=== PATIENT | female | born 1995 | race Caucasian/White ===

== ENCOUNTER 2021-04-27 15:27 | Emergency (ER) | payer MEDICAID ==
[~2021-04-27] VITALS: Ht 162.6 cm; Wt 79.5 kg
[2021-04-27 15:49] VITALS: BP 110/76
[2021-04-27] MEDS ORDERED: PENI500T2 PO (15:54)
[2021-04-27] MEDS ORDERED: IBUP-1986 PO (15:54)
[2021-04-27] MEDS ORDERED: penicillin V potassium 500mg tablet PO ONE (15:55)
[2021-04-27] MEDS ORDERED: ibuprofen tablet 400 MG TABLET PO ONE (15:55)
== END 2021-04-27 17:10 | disposition home or self-care (01) ==
LOC: ER 15:29
DX: K08.89 Other specified disorders of teeth and supporting structures (principal); F17.200 Nicotine dependence, unspecified, uncomplicated; F15.90 Other stimulant use, unspecified, uncomplicated; Z79.2 Long term (current) use of antibiotics; Z79.899 Other long term (current) drug therapy
CPT/HCPCS: 99283

== ENCOUNTER 2021-05-08 05:18 | Emergency (ER) | payer MEDICAID ==
[~2021-05-08] VITALS: Ht 162.6 cm; Wt 72.7 kg
[~2021-05-08 05:18] MED LIST: IBUP-1986 PO; PENI500T2 PO
[2021-05-08 05:35] VITALS: BP 112/89
== END 2021-05-08 07:15 | disposition home or self-care (01) ==
LOC: ER 05:19
DX: J39.2 Other diseases of pharynx (principal); Z20.822 Contact with and (suspected) exposure to COVID-19; J02.9 Acute pharyngitis, unspecified; R05.9 Cough, unspecified; K02.9 Dental caries, unspecified; R09.89 Other specified symptoms and signs involving the circulatory and respiratory systems; F15.90 Other stimulant use, unspecified, uncomplicated; Z79.2 Long term (current) use of antibiotics; Z79.899 Other long term (current) drug therapy
CPT/HCPCS: 87635; 99283; C9803